=== PATIENT | female | born 1965 | race African-American/Black ===

== ENCOUNTER 2017-03-11 10:13 | Inpatient (IN) | payer OTHER ==
[~2017-03-11] VITALS: Ht 165.1 cm; Wt 93.0 kg
[2017-03-11] MEDS ORDERED: HYDROmorphone 1 MG INJ. 1 MG/ML AMPUL IVP ONE (10:45)
[2017-03-11 11:07] VITALS: BP_SYST 131
[2017-03-11] MEDS ORDERED: PREG75CA PO (11:19)
[2017-03-11] MEDS ORDERED: METH500T PO (11:19)
[2017-03-11] MEDS ORDERED: HYDR-4100 PO (11:19)
[2017-03-11] MEDS ORDERED: FOLI-43 PO (11:19)
[2017-03-11] MEDS ORDERED: LUBI24CA5 PO (11:19)
[2017-03-11] MEDS ORDERED: PRED5TAB3 PO (11:19)
[2017-03-11] MEDS ORDERED: HYD500 PO (11:19)
[2017-03-11] MEDS ORDERED: BEN50 PO (11:19)
[2017-03-11] MEDS ORDERED: CELECOXIB 200 MG CAPSULE PO ONE (15:00)
[2017-03-11] MEDS ORDERED: DIPHENHYDRAMINE HCL 50 MG CAPSULE PO PRN (15:00)
[2017-03-11] MEDS ORDERED: MILK OF MAGNESIA 30 ML UDC PO PRN (15:00)
[2017-03-11] MEDS: LevALBUTEROL HCL 1.25 MG/0.5 ML *CONC.* VIAL.NEB (XOPENEX CONC.) INH SCH ×2 (15:00→23:26)
[2017-03-11] MEDS ORDERED: LevALBUTEROL HCL 1.25 MG/0.5 ML *CONC.* VIAL.NEB (XOPENEX CONC.) INH PRN (15:00)
[2017-03-11] MEDS ORDERED: ALPRAZolam 0.25 MG TABLET PO PRN (15:00)
[2017-03-11 15:35] LABS: BASOPHILS % (AUTO) 0.4 % (0.0-2.0); EOSINOPHILS # (AUTO) 0.2 K/uL (0.0-0.4); EOSINOPHILS % (AUTO) 3.2 % (0.0-4.0); HEMOGLOBIN 12.1 g/dL (12.0-16.0); LYMPHOCYTES # (AUTO) 3.1 K/uL (1.0-5.5); LYMPHOCYTES % (AUTO) 41.6 % (20.5-51.5); MEAN CORPUSCULAR HEMOGLOBIN 30 pg (27-31); MEAN CORPUSCULAR HGB CONC 34 % (32-36); MEAN CORPUSCULAR VOLUME 88 fL (79.0-98.0); MONOCYTES # (AUTO) 0.5 K/uL (0.0-1.0); MONOCYTES % (AUTO) 6.9 % (1.7-9.3); NEUTROPHILS # (AUTO) 3.6 K/uL (1.8-7.7); NEUTROPHILS % (AUTO) 47.9 % (40.0-70.0); PLATELET COUNT (AUTO) 176 K/uL (130-430); RED CELL DISTRIBUTION WIDTH 12.6 % (9.0-15.0); WHITE BLOOD COUNT (AUTO) 7.4 K/uL (4.8-10.8)
[2017-03-11 15:49] LABS: ALBUMIN 3.4 g/dL (3.4-4.8); CALCIUM 9.2 mg/dL (8.4-11.0); CREATININE 0.68 mg/dL (0.55-1.30); POTASSIUM 3.8 mmol/L (3.5-5.1); TOTAL BILIRUBIN 0.3 mg/dL (0.0-1.0); TOTAL PROTEIN, SERUM 7.1 g/dL (6.4-8.3); URIC ACID 3.8 mg/dL (2.4-7.0)
[2017-03-11 15:52] VITALS: BP_SYST 132
[2017-03-11] MEDS: HYDROcodone/ACETAMIN 10-325 MG TAB PO SCH ×2 (16:36→20:58)
[2017-03-11 16:41] LABS: ERYTHROCYTE SEDIMENTATION RATE 14 MM/HR (0-20)
[2017-03-11 17:28] VITALS: BP_SYST 132
[2017-03-11] MEDS: AMPICILLIN SODIUM/SULBACTAM NA 3 GM in NS 100 ML IV SCH ×2 (17:43→23:23)
[2017-03-11 20:00] VITALS: BP_SYST 121
[2017-03-11] MEDS: METHOCARBAMOL 500 MG TABLET PO SCH (20:57)
[2017-03-11] MEDS: ENOXAPARIN SODIUM 40 MG/0.4 ML SYRINGE SUBCUT SCH (20:57)
[2017-03-11] MEDS: HYDROXYUREA 500 MG CAPSULE (HYDREA) PO SCH (20:57)
[2017-03-11] MEDS: PREGABALIN 75 MG CAPSULE (LYRICA) PO SCH (20:58)
[2017-03-11] MEDS: FOLIC ACID 1 MG TABLET PO SCH (20:58)
[2017-03-11] MEDS: PANTOPRAZOLE SODIUM 40 MG TAB PO SCH (20:58)
[2017-03-12] VITALS (7 sets, daily range): BP systolic 107–144
[2017-03-12] MEDS: AMPICILLIN SODIUM/SULBACTAM NA 3 GM in NS 100 ML IV SCH ×4 (05:13→23:41)
[2017-03-12] MEDS: LevALBUTEROL HCL 1.25 MG/0.5 ML *CONC.* VIAL.NEB (XOPENEX CONC.) INH SCH ×3 (07:00→23:26)
[2017-03-12] MEDS: FOLIC ACID 1 MG TABLET PO SCH ×2 (09:08→21:45)
[2017-03-12] MEDS: LUBIPROSTONE 24 MCG CAPSULE PO SCH (09:08)
[2017-03-12] MEDS: CELECOXIB 200 MG CAPSULE PO SCH (09:08)
[2017-03-12] MEDS: HYDROXYUREA 500 MG CAPSULE (HYDREA) PO SCH ×2 (09:08→21:45)
[2017-03-12] MEDS: PANTOPRAZOLE SODIUM 40 MG TAB PO SCH ×2 (09:08→21:48)
[2017-03-12] MEDS: PREGABALIN 75 MG CAPSULE (LYRICA) PO SCH ×2 (09:08→21:45)
[2017-03-12] MEDS: METHOCARBAMOL 500 MG TABLET PO SCH ×2 (09:09→21:45)
[2017-03-12] MEDS: HYDROcodone/ACETAMIN 10-325 MG TAB PO SCH ×2 (09:10→15:55)
[2017-03-12] MEDS ORDERED: HYDROcodone/ACETAMIN 10-325 MG TAB PO PRN (20:00)
[2017-03-12] MEDS: HYDROmorphone 1 MG INJ. 1 MG/ML AMPUL IM PRN (20:39)
[2017-03-12] MEDS: ENOXAPARIN SODIUM 40 MG/0.4 ML SYRINGE SUBCUT SCH (21:44)
[2017-03-13] MEDS: HYDROmorphone 1 MG INJ. 1 MG/ML AMPUL IM PRN ×4 (00:29→13:10)
[2017-03-13 03:49] VITALS: BP_SYST 137
[2017-03-13] MEDS: AMPICILLIN SODIUM/SULBACTAM NA 3 GM in NS 100 ML IV SCH ×3 (05:22→17:36)
[2017-03-13 08:00] VITALS: BP_SYST 131
[2017-03-13] MEDS: LevALBUTEROL HCL 1.25 MG/0.5 ML *CONC.* VIAL.NEB (XOPENEX CONC.) INH SCH ×2 (08:06→15:00)
[2017-03-13] MEDS: FOLIC ACID 1 MG TABLET PO SCH ×2 (09:00→21:15)
[2017-03-13] MEDS: LUBIPROSTONE 24 MCG CAPSULE PO SCH (09:00)
[2017-03-13] MEDS: METHOCARBAMOL 500 MG TABLET PO SCH ×2 (09:00→18:50)
[2017-03-13] MEDS: PREGABALIN 75 MG CAPSULE (LYRICA) PO SCH ×2 (09:00→21:15)
[2017-03-13] MEDS: HYDROXYUREA 500 MG CAPSULE (HYDREA) PO SCH (09:00)
[2017-03-13] MEDS: PANTOPRAZOLE SODIUM 40 MG TAB PO SCH (09:00)
[2017-03-13] MEDS: CELECOXIB 200 MG CAPSULE PO SCH (09:00)
[2017-03-13] MEDS ORDERED: NA PHOS,M-B/NA PHOS,DI-BA 118 ML (FLEET ENEMA) RC PRN (10:45)
[2017-03-13] MEDS ORDERED: ONDANSETRON HCL 4 MG/2 ML VIAL IVP PRN (10:45)
[2017-03-13 12:57] VITALS: BP_SYST 147
[2017-03-13] MEDS ORDERED: ONDANSETRON HCL 4 MG/2 ML VIAL ONE (14:22)
[2017-03-13 16:25] VITALS: BP_SYST 129
[2017-03-13 20:04] VITALS: BP_SYST 141
== END 2017-03-13 21:45 | disposition home or self-care (01) | DRG 554 ==
LOC: SMU 10:13
PROVIDERS: ADMIT Family Medicine; ATTEND Family Medicine
DX: M17.11 Unilateral primary osteoarthritis, right knee (principal); D57.1 Sickle-cell disease without crisis; F41.8 Other specified anxiety disorders; J45.909 Unspecified asthma, uncomplicated; Z98.51 Tubal ligation status; Z90.710 Acquired absence of both cervix and uterus; Z88.5 Allergy status to narcotic agent; Z87.891 Personal history of nicotine dependence
CPT/HCPCS: 36415; 73560-TC; 80053; 84550-TC; 85025; 85651-TC; 87040-TC; 94640; 94760; J0295; J1170; J1650; J2405; J7030; J7040